=== PATIENT | female | born 1990 | race Caucasian/White ===

== ENCOUNTER 2018-01-31 18:57 | Inpatient (IN) | payer OTHER ==
[2018-01-31] MEDS: LACTATED RINGER'S 1,000 ML IV ×2 (20:19→21:13)
[2018-01-31 20:46] LABS: ADD MAN DIFF? NO
[2018-01-31 20:48] LABS: BASOPHILS % 0.1 % (0.0-2.0); HEMATOCRIT 30.1 % (37.0-47.0); HEMOGLOBIN 9.6 g/dl (12.0-16.0); LYMPHOCYTES # 0.8 10^3/ul (0.8-2.9); MEAN CORPUSCULAR HEMOGLOBIN 26.4 pg (29.0-33.0); MEAN CORPUSCULAR HGB CONC 31.9 g/dl (32.0-37.0); MEAN CORPUSCULAR VOLUME 82.9 fl (82.0-101.0); MEAN PLATELET VOLUME 9.9 fl (7.4-10.4); MONOCYTE # 0.8 10^3/ul (0.3-0.9); MONOCYTES % 8.8 % (0.0-11.0); NEUTROPHIL # 7.8 10^3/ul (1.6-7.5); NEUTROPHILS % 81.6 % (39.0-77.0); NUCLEATED RED BLOOD CELLS% 0.3 /100WBC (0.0-0.0); PLATELET COUNT 315 10^3/UL (140-415); RED BLOOD COUNT 3.63 10^6/ul (4.20-5.40); RED CELL DISTRIBUTION WIDTH 14.1 % (11.5-14.5)
[2018-01-31 20:48] LABS: WHITE BLOOD COUNT 9.5 10^3/ul (4.8-10.8)
[2018-01-31 21:12] LABS: ADD UMIC YES; UR ASCORBIC ACID NEGATIVE (NEGATIVE); UR BACTERIA FEW /HPF (NONE SEEN); UR BILIRUBIN (Dip) 1+ mg/dL (NEGATIVE); UR BLOOD (Dip) NEGATIVE (NEGATIVE); UR CLARITY CLOUDY (CLEAR); UR COLOR AMBER (YELLOW); UR GLUCOSE (Dip) NEGATIVE (NEGATIVE); UR KETONES (Dip) 2+ mg/dL (NEGATIVE); UR LEUKOCYTE ESTERASE (Dip) 2+ Leu/ul (NEGATIVE); UR MUCUS FEW /HPF (NONE SEEN); UR NITRITE (Dip) NEGATIVE (NEGATIVE); UR RBC 3 /HPF (0-5); UR SPECIFIC GRAVITY (Dip) 1.034 (1.003-1.030); UR SQUAMOUS EPITHELIAL CELL MANY /HPF (FEW); UR TOTAL PROTEIN (Dip) 2+ mg/dl (NEGATIVE); UR UROBILINOGEN (Dip) 2+ mg/dL (NEGATIVE); UR WBC 117 /HPF (0-5)
[2018-01-31] MEDS ORDERED: ONDANSETRON 4 MG INJ IV (23:00)
[2018-01-31] MEDS ORDERED: ACETAMINOPHEN 650 MG SUPP PR (23:00)
[2018-01-31] MEDS: SOD CHLORIDE 0.9% 1,000 ML IV (23:07)
[2018-01-31] MEDS: CEFTRIAXONE 1 GM/50 ML (PMX) 50 ML IVPB (23:41)
[2018-01-31] MEDS: ACETAMINOPHEN 325 MG TAB PO (23:43)
[2018-02-01] MEDS: LACTATED RINGER'S 1,000 ML IV ×3 (04:30→20:30)
[2018-02-01] MEDS: SOD CHLORIDE 0.9% 1,000 ML IV ×3 (06:17→21:25)
[2018-02-01] MEDS: DOCUSATE SODIUM 100 MG CAP PO (09:00)
[2018-02-01] MEDS: PRENATAL VITAMIN PO (09:12)
[2018-02-01] MEDS: BETAMET NA PHOS/AC(6 MG/ML) 5ML INJ IM (13:33)
[2018-02-01 14:08] LABS: ALBUMIN/GLOBULIN RATIO 0.79; ANION GAP 8 (8-16); BILIRUBIN,TOTAL 0.1 mg/dl (0.2-1.3)
[2018-02-01 14:25] LABS: ALANINE AMINOTRANSFERASE 37 IU/L (13-69); ALKALINE PHOSPHATASE 128 IU/L (42-121); ASPARTATE AMINO TRANSFERASE 42 IU/L (15-46); BLOOD UREA NITROGEN 2 mg/dl (7-20); CALCIUM 8.2 mg/dl (8.4-10.2); CARBON DIOXIDE 21 mmol/L (21-31); CHLORIDE 111 mmol/L (97-110); CREATININE 0.38 mg/dl (0.44-1.00); GLUCOSE 108 mg/dl (70-220); POTASSIUM 3.3 mmol/L (3.5-5.1); SODIUM 137 mmol/L (135-144)
[2018-02-01 14:26] LABS: ALBUMIN 2.7 g/dl (3.3-4.9); BILIRUBIN,INDIRECT 0.1 mg/dl (0-1.1); TOTAL PROTEIN 6.1 g/dl (6.1-8.1)
[2018-02-01] MEDS: CEFTRIAXONE 1 GM/50 ML (PMX) 50 ML IVPB (23:20)
[2018-02-02] MEDS: SOD CHLORIDE 0.9% 1,000 ML IV ×3 (01:42→19:20)
[2018-02-02] MEDS: ACETAMINOPHEN 325 MG TAB PO (07:16)
[2018-02-02] MEDS: PRENATAL VITAMIN PO (11:21)
[2018-02-02] MEDS: DOCUSATE SODIUM 100 MG CAP PO (11:22)
[2018-02-02] MEDS: HYDROCODONE/APAP (10/325) TAB PO (12:56)
[2018-02-02] MEDS: BETAMET NA PHOS/AC(6 MG/ML) 5ML INJ IM (14:37)
[2018-02-02] MEDS: CEFTRIAXONE 1 GM/50 ML (PMX) 50 ML IVPB (23:04)
[2018-02-03] MEDS: SOD CHLORIDE 0.9% 1,000 ML IV (05:04)
[2018-02-03] MEDS: DOCUSATE SODIUM 100 MG CAP PO (10:38)
[2018-02-03] MEDS: PRENATAL VITAMIN PO (10:38)
== END 2018-02-03 12:28 | disposition home or self-care (01) | DRG 781 ==
LOC: OBT 18:57 → L-D 02-02 01:22 → PP1 02-01 20:19
DX: O23.03 Infections of kidney in pregnancy, third trimester (principal); Z3A.31 31 weeks gestation of pregnancy
CPT/HCPCS: 36415; 76775; 76817; 76818; 80053; 81001; 85025; 86850; 86900; 86901; 87086

== ENCOUNTER 2018-03-27 03:51 | Inpatient (IN) | payer OTHER ==
[2018-03-27] MEDS ORDERED: LACTATED RINGER'S 1,000 ML IV (05:26)
[2018-03-27 05:28] LABS: ADD UMIC YES; UR ASCORBIC ACID NEGATIVE (NEGATIVE); UR BACTERIA FEW /HPF (NONE SEEN); UR BILIRUBIN (Dip) NEGATIVE (NEGATIVE); UR BLOOD (Dip) NEGATIVE (NEGATIVE); UR CLARITY SLIGHTLY CLOUDY (CLEAR); UR COLOR YELLOW (YELLOW); UR GLUCOSE (Dip) NEGATIVE (NEGATIVE); UR KETONES (Dip) NEGATIVE (NEGATIVE); UR LEUKOCYTE ESTERASE (Dip) 2+ Leu/ul (NEGATIVE); UR MUCUS FEW /HPF (NONE SEEN); UR NITRITE (Dip) NEGATIVE (NEGATIVE); UR RBC 1 /HPF (0-5); UR SQUAMOUS EPITHELIAL CELL FEW /HPF (FEW); UR TOTAL PROTEIN (Dip) 2+ mg/dl (NEGATIVE); UR UROBILINOGEN (Dip) 1+ mg/dL (NEGATIVE); UR WBC 8 /HPF (0-5)
[2018-03-27] MEDS ORDERED: CARBOPROST 250 MCG INJ IM (05:30)
[2018-03-27] MEDS ORDERED: OXYTOCIN 30 UNITS/LR 500 ML IV (05:30)
[2018-03-27] MEDS ORDERED: LIDOCAINE 1% (MPF) 30 ML INJ INJ (05:30)
[2018-03-27] MEDS ORDERED: BUTORPHANOL 2 MG INJ IV (05:30)
[2018-03-27] MEDS ORDERED: METHYLERGONOVINE 0.2 MG INJ IM (05:30)
[2018-03-27] MEDS: LACTATED RINGER'S 1,000 ML IV ×3 (06:12→15:45)
[2018-03-27] MEDS ORDERED: LIDOCAINE 1% (MPF) 30 ML INJ (06:13)
[2018-03-27] MEDS: AMPICILLIN 2 GM/NS (PMX) 100 ML IV (06:15)
[2018-03-27 06:17] LABS: ADD MAN DIFF? NO
[2018-03-27 06:21] LABS: WHITE BLOOD COUNT 10.5 10^3/ul (4.8-10.8)
[2018-03-27 06:21] LABS: BASOPHILS % 0.3 % (0.0-2.0); EOSINOPHILS # 0.2 10^3/ul (0.0-0.5); EOSINOPHILS % 1.5 % (0.0-7.0); HEMATOCRIT 30.7 % (37.0-47.0); HEMOGLOBIN 9.3 g/dl (12.0-16.0); LYMPHOCYTES % 18.9 % (15.0-51.0); MEAN CORPUSCULAR HEMOGLOBIN 23.8 pg (29.0-33.0); MEAN CORPUSCULAR HGB CONC 30.3 g/dl (32.0-37.0); MEAN CORPUSCULAR VOLUME 78.7 fl (82.0-101.0); MONOCYTE # 0.9 10^3/ul (0.3-0.9); MONOCYTES % 8.4 % (0.0-11.0); NEUTROPHIL # 7.3 10^3/ul (1.6-7.5); NUCLEATED RED BLOOD CELLS # 0.1 10^3/ul (0.0-0.0); NUCLEATED RED BLOOD CELLS% 0.6 /100WBC (0.0-0.0); PLATELET COUNT 351 10^3/UL (140-415); RED CELL DISTRIBUTION WIDTH 15.9 % (11.5-14.5)
[2018-03-27 06:43] LABS: ALANINE AMINOTRANSFERASE 43 IU/L (13-69); ALBUMIN 3.3 g/dl (3.3-4.9); ALBUMIN/GLOBULIN RATIO 0.86; ALKALINE PHOSPHATASE 215 IU/L (42-121); ANION GAP 6 (5-13); ASPARTATE AMINO TRANSFERASE 37 IU/L (15-46); BILIRUBIN,INDIRECT 0.3 mg/dl (0-1.1); BILIRUBIN,TOTAL 0.3 mg/dl (0.2-1.3); BLOOD UREA NITROGEN 8 mg/dl (7-20); CALCIUM 8.6 mg/dl (8.4-10.2); CARBON DIOXIDE 21 mmol/L (21-31); CHLORIDE 112 mmol/L (97-110); CREATININE 0.57 mg/dl (0.44-1.00); Estimated GFR > 60 mL/min (>60); GLUCOSE 82 mg/dl (70-220); POTASSIUM 3.9 mmol/L (3.5-5.1); SODIUM 139 mmol/L (135-144); TOTAL PROTEIN 7.1 g/dl (6.1-8.1); URIC ACID 4.4 mg/dl (3.1-7.9)
[2018-03-27 06:51] LABS: INR 0.88; PT RATIO 0.9
[2018-03-27 06:52] LABS: PARTIAL THROMBOPLASTIN TIME 27.2 Sec (23.0-35.0)
[2018-03-27] MEDS ORDERED: FENTAnyl 2MCG/ML-ROPIV 0.2% 100 ML (07:47)
[2018-03-27] MEDS ORDERED: MAGNESIUM SULFATE 4 GM/100 ML 100 ML IV (08:30)
[2018-03-27] MEDS: OXYTOCIN 30 UNITS/LR 500 ML IV ×3 (09:09→12:13)
[2018-03-27] MEDS: AMPICILLIN 1 GM/NS (PMX) 50 ML IV (09:30)
[2018-03-27] MEDS: MISOPROSTOL 200 MCG TAB PR (09:59)
[2018-03-27] MEDS: MAGNESIUM SULFATE 20 GM/500 ML 500 ML IV ×2 (10:28→20:50)
[2018-03-27] MEDS: IBUPROFEN 600 MG TAB PO ×3 (11:01→17:23)
[2018-03-27 12:08] LABS: MAGNESIUM 2.6 mg/dl (1.7-2.5)
[2018-03-27] MEDS ORDERED: HYDROCODONE/APAP (5/325) TAB PO (12:30)
[2018-03-27] MEDS ORDERED: ACETAMINOPHEN 325 MG TAB PO (12:30)
[2018-03-27] MEDS ORDERED: OXYCODONE/ASPIRIN (4.88/325) TAB PO ×2 (12:30)
[2018-03-27] MEDS ORDERED: ONDANSETRON 4 MG INJ IV (12:30)
[2018-03-27] MEDS: LANOLIN 7 GM TUBE TOP (15:48)
[2018-03-27] MEDS: BENZOCAINE 20% 56 ML SPRAY TOP (15:48)
[2018-03-27] MEDS: WITCH HAZEL/GLYCERIN PAD PR (15:49)
[2018-03-27 16:27] LABS: RAPID PLASMA REAGIN NONREACTIVE (NR)
[2018-03-27 17:21] LABS: HEPATITIS B SURFACE ANTIGEN NEGATIVE (NEGATIVE)
[2018-03-27 19:21] LABS: MAGNESIUM 4.9 mg/dl (1.7-2.5)
[2018-03-28] MEDS: IBUPROFEN 600 MG TAB PO ×4 (00:24→17:06)
[2018-03-28 01:44] LABS: MAGNESIUM 5.3 mg/dl (1.7-2.5)
[2018-03-28] MEDS: LACTATED RINGER'S 1,000 ML IV ×2 (04:39→13:26)
[2018-03-28] MEDS: MAGNESIUM SULFATE 20 GM/500 ML 500 ML IV ×2 (06:16→14:29)
[2018-03-28] MEDS: SENNA/DOCUSATE NA (8.6MG/50MG) TAB PO ×2 (09:48→22:36)
[2018-03-28] MEDS: PRENATAL VITAMIN PO (09:48)
[2018-03-28] MEDS: HYDROCODONE/APAP (5/325) TAB PO (09:53)
[2018-03-28 10:08] LABS: ADD MAN DIFF? NO
[2018-03-28 10:13] LABS: BASOPHILS % 0.4 % (0.0-2.0); EOSINOPHILS # 0.2 10^3/ul (0.0-0.5); EOSINOPHILS % 1.8 % (0.0-7.0); HEMATOCRIT 24.9 % (37.0-47.0); HEMOGLOBIN 7.5 g/dl (12.0-16.0); LYMPHOCYTES # 1.9 10^3/ul (0.8-2.9); LYMPHOCYTES % 20.6 % (15.0-51.0); MEAN CORPUSCULAR HEMOGLOBIN 23.7 pg (29.0-33.0); MEAN CORPUSCULAR HGB CONC 30.1 g/dl (32.0-37.0); MEAN CORPUSCULAR VOLUME 78.5 fl (82.0-101.0); MEAN PLATELET VOLUME 10.7 fl (7.4-10.4); MONOCYTE # 0.7 10^3/ul (0.3-0.9); MONOCYTES % 7.4 % (0.0-11.0); NEUTROPHIL # 6.5 10^3/ul (1.6-7.5); NEUTROPHILS % 69.2 % (39.0-77.0); PLATELET COUNT 313 10^3/UL (140-415); RED BLOOD COUNT 3.17 10^6/ul (4.20-5.40); RED CELL DISTRIBUTION WIDTH 16.1 % (11.5-14.5)
[2018-03-28 10:13] LABS: WHITE BLOOD COUNT 9.3 10^3/ul (4.8-10.8)
[2018-03-28] MEDS: FERROUS SULFATE (EC) 325 MG TAB PO ×2 (13:33→22:36)
[2018-03-29] MEDS: IBUPROFEN 600 MG TAB PO ×3 (00:01→13:04)
[2018-03-29] MEDS ORDERED: MEASLES,MUMPS,RUBELLA VACCINE INJ SC* (09:00)
[2018-03-29] MEDS: SENNA/DOCUSATE NA (8.6MG/50MG) TAB PO (10:00)
[2018-03-29] MEDS: PRENATAL VITAMIN PO (10:00)
[2018-03-29] MEDS: FERROUS SULFATE (EC) 325 MG TAB PO (10:00)
== END 2018-03-29 14:45 | disposition home or self-care (01) | DRG 807 ==
LOC: OBT 03:51 → L-D 03:51 → OBT 05:30 → L-D 05:30 → PP1 11:52
PROC: 10E0XZZ Delivery of Products of Conception, External Approach (ICD-10-PCS; principal; 2018-03-27)
PROC: 0HQ9XZZ Repair Perineum Skin, External Approach (ICD-10-PCS; 2018-03-27)
DX: O14.94 Unspecified pre-eclampsia, complicating childbirth (principal); Z37.0 Single live birth; O76 Abnormality in fetal heart rate and rhythm complicating labor and delivery; O70.0 First degree perineal laceration during delivery; Z3A.39 39 weeks gestation of pregnancy
CPT/HCPCS: 62319; 80053; 81001; 83735; 84560; 85025; 85610; 85730; 86592; 86850; 86900; 86901; 87340; 93970